=== PATIENT | male | born 1940 | race Caucasian/White ===

== ENCOUNTER 2022-09-05 13:06 | Inpatient (IN) | payer MEDICARE, SELFPAY ==
[2022-09-05] VITALS (23 sets, daily range): BP systolic 109–150; BP diastolic 50–93; PULSE 57–104; RESP 13–22; TEMP 36.6–36.7; O2SAT 96–99; BMI 26.9
--- NOTE | ~2022-09-05 | US_ITS ---
EXAMINATION: US venous doppler [facility] DATE: 09/06/2022 08:55 INDICATION: Lower limb edema. TECHNIQUE: Grayscale ultrasound images without and with compression and Doppler ultrasound images of the bilateral lower extremity veins were obtained. COMPARISON: None. FINDINGS: The visualized portions of right common femoral vein, profunda (deep) femoral vein, femoral vein, pop liteal vein, peroneal veins, posterior tibial veins, and greater saphenous vein outflow are patent. The visualized portions of left common femoral vein, profunda femoral vein, femoral vein, popliteal v ein, peroneal veins, posterior tibial veins, and greater saphenous vein outflow are patent. IMPRESSION: 1. No deep venous thrombosis. Reviewed, dictated and finalized at location A.
--- NOTE | ~2022-09-05 | US_ITS ---
EXAMINATION: US arterial ankle brachial ind DATE: 09/06/2022 12:04 INDICATION: Leg wounds/ulcerations. Left lower limb weakness, pain, numbness and tingling. TECHNIQUE: Segmental pressures and plethysmographic and Doppler waveforms of the brachial and lower e xtremity arteries were obtained. COMPARISON: None. FINDINGS: Right and left brachial artery pressures of 111 mm Hg and 127 mm Hg, respectively, are concordant (no rmal difference <= 30 mmHg). The right ankle-brachial index (MERE) is 1.09 (normal >= 0.9-1.0). The right great toe-brachial index (TBI) is 0.51 (normal >= 0.65). Arterial Doppler waveforms are biphasic with brisk systolic upstrokes at both right posterior tibial and dorsalis pedis arteries. The left MERE is 0.86. The left TBI is 0.39. Arterial Doppler waveforms are biphasic with brisk systol ic upstroke at the left dorsalis pedis artery and with mildly broadened systolic peak with borderline delayed upstrokes at the left posterior tibial artery. IMPRESSION: 1. Arterial occlusive disease to the bilateral lower limbs, left greater than right with mildly decre ased left MERE and moderately decreased left TBI and with mildly decreased right TBI and normal right MERE. Reviewed, dictated and finalized at location B. IMPRESSION: 1. Arterial occlusive disease to the bilateral lower limbs, left greater than r ight with mildly decreased left MERE and moderately decreased left TBI and with mildly decreased right TBI and normal right MERE.
--- NOTE | ~2022-09-05 | XR_ITS ---
EXAMINATION: XR ankle LT min 3V DATE: 09/05/2022 14:30 INDICATION: Left ankle pain, infected wound TECHNIQUE: Anteroposterior, lateral, mortise, and additional oblique view of the ankle were obtained. COMPARISON: None. FINDINGS: There is a soft tissue defect in association with soft tissue swelling medial and posterior to the distal tibia. No associated underlying osseous abnormality is identified. Fragmentation of th e medial malleolus suggests prior injury. Bone alignment is normal. No acute fracture is identified. A plantar calcaneal enthesophyte is noted. 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 IMPRESSION: 1. Soft tissue defect and swelling of the distal leg without underlying osseous abnormality, consiste nt with infection. Reviewed, dictated and finalized at location F. IMPRESSION: 1. Soft tissue defect and swelling of the distal leg without underlying osseous abnormality, consistent with infection.
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
--- NOTE | 2022-09-05 14:12 | ECG_ITS ---
Measurements Intervals [place] Rate: 62 P: 57 AK: 302 QRS: -17 QRSD: 106 T: 59 QT: 433 QTc: 441 Interpretive Statements SINUS RHYTHM WITH FIRST DEGREE AV BLOCK ANTEROSEPTAL MYOCARDIAL INFARCTION , OF INDETERMINATE AGE [40+ ms Q WAVE IN V1-V4] NO PREVIOUS ECG AVAILABLE FOR COMPARISON Electronically Signed On 09-05-2022 15:54:28 CDT by Ashwini Akers M.D.
[2022-09-05 14:43] LABS: Immature Reticulocyte Fraction 14.4 % (3.0-15.9); Reticulocyte Hemoglobin Conten 29.2 pg (28.2-35.7); Reticulocyte Percent 1.58 % (0.7-4.3); Reticulocytes Absolute 0.07 B/L (32.2-175.7)
[2022-09-05 14:51] LABS: Basophils Absolute Auto 0.1 K/mm3 (0.0-0.1); Basophils Percent Auto 0.6 % (0.2-1.2); Eosinophils Absolute Auto 0.2 K/mm3 (0-0.3); Eosinophils Percent Auto 2.3 % (0-4.4); Hematocrit 40.2 % (42.0-52.0); Hemoglobin 13.1 g/dL (14.0-18.0); Immature Granulocyte Absolute 0.11 K/mm3 (0.00-0.031); Immature Granulocyte Percent A 1.3 % (0-0.5); Lymphocytes Absolute Auto 0.95 K/mm3 (0.9-3.2); Lymphocytes Percent Auto 11.3 % (18.3-44.2); Mean Corpuscular HGB Conc 32.6 g/dl (32-36); Mean Corpuscular Hemoglobin 31.3 pg (26-34); Mean Corpuscular Volume 96.2 fl (80-100); Mean Platelet Volume 9.6 fl (7.4-10.4); Monocytes Absolute Auto 0.6 K/mm3 (0.1-0.6); Monocytes Percent Auto 7.5 % (2.6-8.5); Neutrophils Absolute Auto 6.5 K/mm3 (1.3-6.7); Platelet Count Result 342 k/mm3 (150-375); Red Blood Count 4.18 M/mm3 (4.6-6.20); Red Cell Distribution Width 12.6 % (11.5-14.5); White Blood Count 8.4 K/mm3 (4.5-10.0)
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
[2022-09-05 14:58] LABS: INR 1.4; Prothrombin Time 16.8 Seconds (11.1-14.7)
[2022-09-05 14:59] LABS: Lactic Acid Reflex 1.3 mmol/L (0.7-2.0); Partial Thromboplastin Time 50.5 SECONDS (22.3-36.8)
[2022-09-05 15:05] LABS: Alanine Aminotransferase 39 U/L (6-50); Albumin Level 3.6 g/dL (3.5-5.1); Alkaline Phosphatase 61 U/L (38-126); Anion Gap 14 mmol/L (8-16); Aspartate Amino Transferase 43 U/L (17-59); Bilirubin,Total 0.8 mg/dL (0.2-1.3); Blood Urea Nitrogen 35 mg/dL (9-20); CRP 6.7 mg/dL (<1.0); Calcium 8.8 mg/dL (8.4-10.2); Carbon Dioxide 24 mmol/L (22-30); Chloride 104 mmol/L (98-107); Estimated CRCL calculation 39 ml/min; Estimated Glomerular Filt Rate 48; Glucose 105 mg/dL (65-110); Magnesium 2.2 mg/dL (1.6-2.3); Potassium 3.9 mmol/L (3.4-5.0); Sodium 142 mmol/L (137-145)
[2022-09-05 16:09] LABS: Add Urine Microscopic? NO; Appearance Urine Clear (Clear); Bilirubin Urine Negative (Negative); Blood Urine Negative (Negative); Color Urine Yellow (Yellow); Glucose Urine UA Negative (Negative); Ketones Urine Negative (Negative); Leukocyte Esterase Ur Negative LEU/UL (Negative); Nitrate Urine Negative (Negative); Protein Urine Negative (Negative); Specific Grav Ur 1.019 (1.001-1.035); Urobilinogen Urine Negative mg/dL (<2.0)
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
--- NOTE | 2022-09-05 17:51 | PC.NURSE ---
This patient, Miguel Angel Reyes, was admitted to Medical Room 349-01. Patient/family oriented to hospital policies and general routines including ID bracelet, bed and alarms, visiting hours, pain management, procedures, bathroom and other care routines, personal items, smoking policy, room service/diet, and visiting hours. Information on how to activate the Rapid Response Team has been discussed. Patient/Family are encouraged to report perceived risks to care and to ask questions if they do not understand what they are told or what they should do.
[2022-09-05] MEDS: GENTAMICIN SULFATE 0.1% OINT 15 GM TUBE 1 APPLIC TOPICAL (18:00)
[2022-09-05 23:59] LABS: Glucose Point of Care 102 mg/dl (65-105)
[2022-09-06] VITALS (13 sets, daily range): BP systolic 112–140; BP diastolic 56–72; PULSE 56–76; RESP 16–22; TEMP 35.7–36.7; O2SAT 92–99; BMI 26.9
--- NOTE | 2022-09-06 04:25 | PCRCNOTE ---
patient stated that he had a sleep study, but he does not have a home unit; patient did not want to use hospital unit at this time; RT explained the benefits of use to no avail
[2022-09-06 05:38] LABS: Basophils Absolute Auto 0.1 K/mm3 (0.0-0.1); Basophils Percent Auto 0.8 % (0.2-1.2); Eosinophils Absolute Auto 0.2 K/mm3 (0-0.3); Eosinophils Percent Auto 2.8 % (0-4.4); Hematocrit 37.8 % (42.0-52.0); Hemoglobin 12.6 g/dL (14.0-18.0); Immature Granulocyte Absolute 0.09 K/mm3 (0.00-0.031); Immature Granulocyte Percent A 1.2 % (0-0.5); Lymphocytes Absolute Auto 0.92 K/mm3 (0.9-3.2); Lymphocytes Percent Auto 12.2 % (18.3-44.2); Mean Corpuscular HGB Conc 33.3 g/dl (32-36); Mean Corpuscular Hemoglobin 31.3 pg (26-34); Mean Corpuscular Volume 93.8 fl (80-100); Mean Platelet Volume 9.3 fl (7.4-10.4); Monocytes Absolute Auto 0.7 K/mm3 (0.1-0.6); Monocytes Percent Auto 9.6 % (2.6-8.5); Neutrophils Absolute Auto 5.5 K/mm3 (1.3-6.7); Neutrophils Percent Auto 73.4 % (45.5-73.1); Platelet Count Result 313 k/mm3 (150-375); Red Blood Count 4.03 M/mm3 (4.6-6.20); Red Cell Distribution Width 12.4 % (11.5-14.5); White Blood Count 7.5 K/mm3 (4.5-10.0)
[2022-09-06 05:48] LABS: Alanine Aminotransferase 32 U/L (6-50); Albumin Level 3.3 g/dL (3.5-5.1); Alkaline Phosphatase 60 U/L (38-126); Anion Gap 9 mmol/L (8-16); Aspartate Amino Transferase 36 U/L (17-59); Bilirubin,Total 0.7 mg/dL (0.2-1.3); Blood Urea Nitrogen 27 mg/dL (9-20); Calcium 8.8 mg/dL (8.4-10.2); Carbon Dioxide 29 mmol/L (22-30); Chloride 104 mmol/L (98-107); Estimated CRCL calculation 36 ml/min; Estimated Glomerular Filt Rate 45; Glucose 111 mg/dL (65-110); Sodium 142 mmol/L (137-145)
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
[2022-09-06] MEDS: MULTIVITAMINS /C LUTEIN (CENTRUM SILVER) TABLET *BKC 1 TAB PO (09:56)
[2022-09-06] MEDS: GABAPENTIN 100 MG CAPSULE PO ×3 (09:56→17:09)
[2022-09-06] MEDS: FOLIC ACID 1 MG TABLET PO (09:56)
[2022-09-06] MEDS: amLODIPine BESYLATE 5 MG TABLET PO ×2 (09:56→21:48)
[2022-09-06] MEDS: SUCRALFATE 1 GM TABLET PO ×2 (09:56→17:09)
[2022-09-06] MEDS: ATORVASTATIN 20 MG TABLET PO (09:56)
[2022-09-06] MEDS: APIXABAN 5 MG TABLET PO ×2 (09:56→21:48)
[2022-09-06] MEDS: PANTOPRAZOLE 40 MG TABLET PO (09:56)
[2022-09-06] MEDS: METOPROLOL SUCCINATE EXT REL 50 MG TABCR PO (09:57)
[2022-09-06] MEDS: THIAMINE HCL 100 MG TABLET PO (09:57)
[2022-09-06] MEDS: SODIUM CHLORIDE 0.9% IV 1,000 ML 75 ML IV CONT (10:03)
[2022-09-06] MEDS: GENTAMICIN SULFATE 0.1% OINT 15 GM TUBE 1 APPLIC TOPICAL ×2 (10:03→21:49)
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
[2022-09-06 11:39] LABS: Hemoglobin A1C 5.7 % (<5.7)
[2022-09-06] MEDS: cefTRIAXone 2 GM in SODIUM CHLORIDE 0.9% IV 100 ML 200 ML IVPB (12:53)
[2022-09-06 13:39] LABS: Glucose Point of Care 122 mg/dl (65-105)
[2022-09-06] MEDS: IPRATROPIUM BR 0.02% INH SOLN 0.5 MG/2.5 ML VIAL INHALATION ×2 (14:07→20:08)
[2022-09-06] MEDS: ALBUTEROL SULFATE NEB 2.5 MG/0.5 ML INH INHALATION ×2 (14:07→20:07)
[2022-09-06] MEDS: DOXYCYCLINE 100 MG/NS 100 ML 100 MG/100 ML BAG IVPB ×2 (15:15→21:48)
[2022-09-07] VITALS (19 sets, daily range): BP systolic 107–128; BP diastolic 69–81; PULSE 53–105; RESP 16–22; TEMP 36.4–37.1; O2SAT 91–98
[2022-09-07] MEDS: SODIUM CHLORIDE 0.9% IV 1,000 ML 75 ML IV CONT (04:25)
[2022-09-07 06:39] LABS: Basophils Absolute Auto 0.1 K/mm3 (0.0-0.1); Basophils Percent Auto 0.7 % (0.2-1.2); Eosinophils Absolute Auto 0.2 K/mm3 (0-0.3); Hematocrit 38.8 % (42.0-52.0); Hemoglobin 12.6 g/dL (14.0-18.0); Immature Granulocyte Absolute 0.09 K/mm3 (0.00-0.031); Lymphocytes Absolute Auto 1.02 K/mm3 (0.9-3.2); Lymphocytes Percent Auto 11.6 % (18.3-44.2); Mean Corpuscular HGB Conc 32.5 g/dl (32-36); Mean Corpuscular Hemoglobin 30.5 pg (26-34); Mean Corpuscular Volume 93.9 fl (80-100); Mean Platelet Volume 9.6 fl (7.4-10.4); Monocytes Absolute Auto 0.8 K/mm3 (0.1-0.6); Monocytes Percent Auto 8.5 % (2.6-8.5); Neutrophils Absolute Auto 6.7 K/mm3 (1.3-6.7); Neutrophils Percent Auto 76.2 % (45.5-73.1); Platelet Count Result 369 k/mm3 (150-375); Red Blood Count 4.13 M/mm3 (4.6-6.20); Red Cell Distribution Width 12.5 % (11.5-14.5); White Blood Count 8.8 K/mm3 (4.5-10.0)
[2022-09-07] MEDS: IPRATROPIUM BR 0.02% INH SOLN 0.5 MG/2.5 ML VIAL INHALATION ×3 (07:45→20:44)
[2022-09-07] MEDS: ALBUTEROL SULFATE NEB 2.5 MG/0.5 ML INH INHALATION ×3 (07:45→20:44)
--- NOTE | 2022-09-07 08:29 | PM.IMPN ---
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 Adjust per wound culture results. mere - Left reduced 0.86 venous doppler negative ad patient is on eliquis wound RN consulted and continue wound care per recommendations. Continue gentamicin topical ointment. A1c 5.7% (2) Cellulitis: Qualifiers: Site of cellulitis: extremity Site of cellulitis of extremity: lower extremity Laterality: left Qualified Code(s): L03.116 - Cellulitis of left lower limb Code(s): L03.90 - Cellulitis, unspecified Status: Acute Assessment and Plan: as above (3) Macular degeneration: Qualifiers: Macular degeneration type: unspecified type Eye laterality: bilateral Qualified Code(s): H35.30 - Unspecified macular degeneration Code(s): H35.30 - Unspecified macular degeneration Status: Chronic Assessment and Plan: To be aware. (4) COPD (chronic obstructive pulmonary disease): Code(s): J44.9 - Chronic obstructive pulmonary disease, unspecified Status: Acute Assessment and Plan: Chronic, not in acute exacerbation. Continue Duonebs q6 hold systemic steroids (5) PARISA on CPAP: Code(s): G47.33 - Obstructive sleep apnea (adult) (pediatric); Z99.89 - Dependence on other enabling machines and devices Status: Chronic Assessment and Plan: cpap at nighttime and with daytime naps at home settings. (6) Chronic a-fib: Code(s): I48.20 - Chronic atrial fibrillation, unspecified Status: Acute Assessment and Plan: monitor telemetry. Noted to be in sinus rhythm/sinus tachycardia continue metoprolol and eliquis (7) Hyperlipemia, fat-induced: Code(s): E78.49 - Other hyperlipidemia Status: Acute Assessment and Plan: continue lipitor (8) Hypertension: Qualifiers: Hypertension type: primary hypertension Qualified Code(s): I10 - Essential (primary) hypertension Code(s): I10 - Essential (primary) hypertension Status: Chronic Assessment and Plan: chronic, stable. Continue home medications. (9) GERD (gastroesophageal reflux disease): Qualifiers: Esophagitis presence: without esophagitis Qualified Code(s): K21.9 - Gastro-esophageal reflux disease without esophagitis Code(s): K21.9 - Gastro-esophageal reflux disease without esophagitis Status: Chronic Assessment and Plan: Chronic, stable. PPI and sulcralfate (10) Altered mental status: Qualifiers: Altered mental status type: disorientation Qualified Code(s): R41.0 - Disorientation, unspecified Code(s): R41.82 - Altered mental status, unspecified Status: Acute Assessment and Plan: Likely alcohol withdrawal and hospital induced delirium. Continue thiamine and folic acid. TSH within normal limits, A1c 5.7% and B12 658 and stable. (11) Peripheral artery disease: Code(s): I73.9 - Peripheral vascular disease, unspecified Status: Acute Assessment and Plan: Noted to have reduced left MERE 0.86 and TBI left 0.36; right MERE 1.09, TBI 0.51. Check lipid panel. Continue statin. Patient is on Eliquis for afib Counseled on diet, physical activity, avoiding alcohol, not taking up smoking, as well as blood pressure management. (12) CKD (chronic kidney disease): Qualifiers: Chronic kidney disease stage 3 subtype: stage 3a (GFR 45-59) Chronic kidney disease stage: stage 3 (moderate) Qualified Code(s): N18.31 - Chronic kidney disease, stage 3a
[2022-09-07] MEDS: METOPROLOL SUCCINATE EXT REL 50 MG TABCR PO (09:18)
[2022-09-07] MEDS: PANTOPRAZOLE 40 MG TABLET PO (09:18)
[2022-09-07] MEDS: ATORVASTATIN 20 MG TABLET PO (09:18)
[2022-09-07] MEDS: cefTRIAXone 2 GM in SODIUM CHLORIDE 0.9% IV 100 ML 200 ML IVPB (09:18)
[2022-09-07] MEDS: FOLIC ACID 1 MG TABLET PO (09:18)
[2022-09-07] MEDS: amLODIPine BESYLATE 5 MG TABLET PO ×2 (09:18→22:04)
[2022-09-07] MEDS: MULTIVITAMINS /C LUTEIN (CENTRUM SILVER) TABLET *BKC 1 TAB PO (09:18)
[2022-09-07] MEDS: APIXABAN 5 MG TABLET PO ×2 (09:18→22:03)
[2022-09-07] MEDS: GABAPENTIN 100 MG CAPSULE PO ×3 (09:18→17:26)
[2022-09-07] MEDS: SUCRALFATE 1 GM TABLET PO ×2 (09:19→17:26)
[2022-09-07] MEDS: THIAMINE HCL 100 MG TABLET PO (09:19)
[2022-09-07 09:42] LABS: Anion Gap 10 mmol/L (8-16); Blood Urea Nitrogen 23 mg/dL (9-20); Calcium 8.3 mg/dL (8.4-10.2); Carbon Dioxide 24 mmol/L (22-30); Chloride 106 mmol/L (98-107); Estimated CRCL calculation 39 ml/min; Estimated Glomerular Filt Rate 48; Glucose 98 mg/dL (65-110); Potassium 3.9 mmol/L (3.4-5.0); Sodium 140 mmol/L (137-145)
[2022-09-07] MEDS: DOXYCYCLINE 100 MG/NS 100 ML 100 MG/100 ML BAG IVPB ×2 (10:09→22:03)
[2022-09-07 11:04] LABS: Folic Acid > 20.0 ng/mL (2.76->20)
[2022-09-07] MEDS: GENTAMICIN SULFATE 0.1% OINT 15 GM TUBE 1 APPLIC TOPICAL ×2 (12:31→22:03)
[2022-09-07 13:00] LABS: Cholesterol 120 mg/dL (0-200); HDL Direct 23 mg/dL; Triglycerides 177 mg/dL (<150)
[2022-09-07 13:11] LABS: LDL Cholesterol Direct 69 mg/dL
[2022-09-07] MEDS: MELATONIN 5 MG TABLET PO (22:03)
[2022-09-08] VITALS (19 sets, daily range): BP systolic 113–126; BP diastolic 57–77; PULSE 58–104; RESP 16–20; TEMP 35.7–36.9; O2SAT 93–97
[2022-09-08] MEDS: ALBUTEROL SULFATE NEB 2.5 MG/0.5 ML INH INHALATION ×4 (02:26→20:18)
[2022-09-08] MEDS: IPRATROPIUM BR 0.02% INH SOLN 0.5 MG/2.5 ML VIAL INHALATION ×4 (02:26→20:18)
[2022-09-08] MEDS: SODIUM CHLORIDE 0.9% IV 1,000 ML 75 ML IV CONT (03:30)
--- NOTE | 2022-09-08 07:56 | PM.IMPN ---
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 09/06/22-09/08/22 mere - Left reduced 0.86 venous doppler negative ad patient is on eliquis wound RN consulted and continue wound care per recommendations. A1c 5.7% 09/08/22 wound culture negative for growth. 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 Transition to oral doxycycline 100 mg BID and oral cefdinir 300 mg BID x5-7 days. Stop gentamicin ointment. Will have wound nurse assess in am if silver gel appropriate for application. (2) Cellulitis: Qualifiers: Laterality: left Site of cellulitis: extremity Site of cellulitis of extremity: lower extremity Qualified Code(s): L03.116 - Cellulitis of left lower limb Code(s): L03.90 - Cellulitis, unspecified Status: Acute Assessment and Plan: as above (3) Macular degeneration: Qualifiers: Eye laterality: bilateral Macular degeneration type: unspecified type Qualified Code(s): H35.30 - Unspecified macular degeneration Code(s): H35.30 - Unspecified macular degeneration Status: Chronic Assessment and Plan: To be aware. (4) COPD (chronic obstructive pulmonary disease): Code(s): J44.9 - Chronic obstructive pulmonary disease, unspecified Status: Acute Assessment and Plan: Chronic, not in acute exacerbation. Continue Duonebs q6 hold systemic steroids Stable (5) PARISA on CPAP: Code(s): G47.33 - Obstructive sleep apnea (adult) (pediatric); Z99.89 - Dependence on other enabling machines and devices Status: Chronic Assessment and Plan: cpap at nighttime and with daytime naps at home settings. (6) Chronic a-fib: Code(s): I48.20 - Chronic atrial fibrillation, unspecified Status: Acute Assessment and Plan: monitor telemetry. Noted to be in sinus rhythm/sinus tachycardia continue metoprolol and eliquis (7) Hyperlipemia, fat-induced: Code(s): E78.49 - Other hyperlipidemia Status: Acute Assessment and Plan: chronic, stable. continue lipitor (8) Hypertension: Qualifiers: Hypertension type: primary hypertension Qualified Code(s): I10 - Essential (primary) hypertension Code(s): I10 - Essential (primary) hypertension Status: Chronic Assessment and Plan: chronic, stable. Continue home medications. (9) GERD (gastroesophageal reflux disease): Qualifiers: Esophagitis presence: without esophagitis Qualified Code(s): K21.9 - Gastro-esophageal reflux disease without esophagitis Code(s): K21.9 - Gastro-esophageal reflux disease without esophagitis Status: Chronic Assessment and Plan: Chronic, stable. PPI and sulcralfate (10) Altered mental status: Qualifiers: Altered mental status type: disorientation Qualified Code(s): R41.0 - Disorientation, unspecified Code(s): R41.82 - Altered mental status, unspecified Status: Acute Assessment and Plan: Likely alcohol withdrawal and hospital induced delirium. Continue thiamine and folic acid. TSH within normal limits, A1c 5.7% and B12 658 and stable. (11) Peripheral artery disease: Code(s): I73.9 - Peripheral vascular disease, unspecified Status: Acute Assessment and Plan: Noted to have reduced left MERE 0.86 and TBI left 0.36; right MERE 1.09, TBI 0.51. lipid panel. Continue statin. Patient is on Eliquis for afib Counseled on diet, physical activity, avoiding alcohol, not taking up smoking, as well as blood pressure m
[2022-09-08] MEDS: amLODIPine BESYLATE 5 MG TABLET PO ×2 (09:27→20:44)
[2022-09-08] MEDS: ATORVASTATIN 20 MG TABLET PO (09:27)
[2022-09-08] MEDS: APIXABAN 5 MG TABLET PO ×2 (09:27→20:44)
[2022-09-08] MEDS: PANTOPRAZOLE 40 MG TABLET PO (09:28)
[2022-09-08] MEDS: FOLIC ACID 1 MG TABLET PO (09:28)
[2022-09-08] MEDS: METOPROLOL SUCCINATE EXT REL 50 MG TABCR PO (09:28)
[2022-09-08] MEDS: GABAPENTIN 100 MG CAPSULE PO ×3 (09:28→18:44)
[2022-09-08] MEDS: THIAMINE HCL 100 MG TABLET PO (09:29)
[2022-09-08] MEDS: SUCRALFATE 1 GM TABLET PO ×2 (09:29→15:13)
[2022-09-08] MEDS: GENTAMICIN SULFATE 0.1% OINT 15 GM TUBE 1 APPLIC TOPICAL (09:30)
[2022-09-08] MEDS: DOXYCYCLINE HYCLATE 100 MG TABLET PO ×2 (09:33→20:44)
[2022-09-08] MEDS: CEFDINIR 300 MG CAPSULE PO ×2 (09:33→20:44)
[2022-09-08 10:57] LABS: Basophils Absolute Auto 0.1 K/mm3 (0.0-0.1); Basophils Percent Auto 0.6 % (0.2-1.2); Eosinophils Absolute Auto 0.1 K/mm3 (0-0.3); Eosinophils Percent Auto 1.6 % (0-4.4); Hematocrit 39.1 % (42.0-52.0); Hemoglobin 12.5 g/dL (14.0-18.0); Immature Granulocyte Absolute 0.06 K/mm3 (0.00-0.031); Immature Granulocyte Percent A 0.8 % (0-0.5); Lymphocytes Absolute Auto 0.75 K/mm3 (0.9-3.2); Lymphocytes Percent Auto 9.5 % (18.3-44.2); Mean Corpuscular Hemoglobin 31.4 pg (26-34); Mean Corpuscular Volume 98.2 fl (80-100); Mean Platelet Volume 9.4 fl (7.4-10.4); Monocytes Absolute Auto 0.4 K/mm3 (0.1-0.6); Monocytes Percent Auto 5.6 % (2.6-8.5); Neutrophils Absolute Auto 6.5 K/mm3 (1.3-6.7); Neutrophils Percent Auto 81.9 % (45.5-73.1); Platelet Count Result 335 k/mm3 (150-375); Red Blood Count 3.98 M/mm3 (4.6-6.20); Red Cell Distribution Width 12.7 % (11.5-14.5); White Blood Count 7.9 K/mm3 (4.5-10.0)
[2022-09-08 11:13] LABS: Anion Gap 8 mmol/L (8-16); Blood Urea Nitrogen 22 mg/dL (9-20); Calcium 8.3 mg/dL (8.4-10.2); Carbon Dioxide 23 mmol/L (22-30); Chloride 108 mmol/L (98-107); Estimated CRCL calculation 42 ml/min; Estimated Glomerular Filt Rate 53; Glucose 188 mg/dL (65-110); Potassium 3.9 mmol/L (3.4-5.0); Sodium 139 mmol/L (137-145)
[2022-09-08] MEDS: MULTIVITAMINS /C LUTEIN (CENTRUM SILVER) TABLET *BKC 1 TAB PO (12:24)
[2022-09-08] MEDS: SACCHAROMYCES BOULARDII 250 MG CAPSULE PO (18:44)
[2022-09-08] MEDS: MELATONIN 5 MG TABLET PO (20:44)
[2022-09-08] MEDS: SENNA/DOCUSATE SODIUM TABLET 1 TAB PO (20:44)
[2022-09-09] VITALS (10 sets, daily range): BP systolic 100–126; BP diastolic 62–67; PULSE 75–125; RESP 18–20; TEMP 36.4–37.1; O2SAT 94–95
[2022-09-09 05:44] LABS: Basophils Absolute Auto 0.1 K/mm3 (0.0-0.1); Basophils Percent Auto 0.7 % (0.2-1.2); Eosinophils Absolute Auto 0.2 K/mm3 (0-0.3); Eosinophils Percent Auto 2.5 % (0-4.4); Hematocrit 38.5 % (42.0-52.0); Hemoglobin 12.2 g/dL (14.0-18.0); Immature Granulocyte Absolute 0.05 K/mm3 (0.00-0.031); Immature Granulocyte Percent A 0.6 % (0-0.5); Lymphocytes Absolute Auto 0.99 K/mm3 (0.9-3.2); Mean Corpuscular HGB Conc 31.7 g/dl (32-36); Mean Corpuscular Volume 97.7 fl (80-100); Mean Platelet Volume 9.1 fl (7.4-10.4); Monocytes Absolute Auto 0.7 K/mm3 (0.1-0.6); Monocytes Percent Auto 8.8 % (2.6-8.5); Neutrophils Absolute Auto 6.2 K/mm3 (1.3-6.7); Neutrophils Percent Auto 75.4 % (45.5-73.1); Platelet Count Result 306 k/mm3 (150-375); Red Blood Count 3.94 M/mm3 (4.6-6.20); Red Cell Distribution Width 12.6 % (11.5-14.5); White Blood Count 8.3 K/mm3 (4.5-10.0)
[2022-09-09 05:58] LABS: Anion Gap 10 mmol/L (8-16); Blood Urea Nitrogen 21 mg/dL (9-20); Calcium 8.6 mg/dL (8.4-10.2); Carbon Dioxide 26 mmol/L (22-30); Chloride 105 mmol/L (98-107); Estimated CRCL calculation 42 ml/min; Estimated Glomerular Filt Rate 53; Glucose 107 mg/dL (65-110); Potassium 3.9 mmol/L (3.4-5.0); Sodium 141 mmol/L (137-145)
[2022-09-09 07:30] LABS: Procalcitonin 0.1 ng/mL
[2022-09-09] MEDS: ALBUTEROL SULFATE NEB 2.5 MG/0.5 ML INH INHALATION ×2 (07:54→14:07)
[2022-09-09] MEDS: IPRATROPIUM BR 0.02% INH SOLN 0.5 MG/2.5 ML VIAL INHALATION ×2 (07:54→14:07)
[2022-09-09] MEDS: METOPROLOL SUCCINATE EXT REL 50 MG TABCR PO (08:54)
[2022-09-09] MEDS: THIAMINE HCL 100 MG TABLET PO (08:54)
[2022-09-09] MEDS: APIXABAN 5 MG TABLET PO (08:54)
[2022-09-09] MEDS: DOXYCYCLINE HYCLATE 100 MG TABLET PO (08:54)
[2022-09-09] MEDS: POTASSIUM CHLORIDE 20 MEQ TABLET 40 MEQ PO (08:54)
[2022-09-09] MEDS: FOLIC ACID 1 MG TABLET PO (08:55)
[2022-09-09] MEDS: amLODIPine BESYLATE 5 MG TABLET PO (08:55)
[2022-09-09] MEDS: CEFDINIR 300 MG CAPSULE PO (08:55)
[2022-09-09] MEDS: SACCHAROMYCES BOULARDII 250 MG CAPSULE PO (08:55)
[2022-09-09] MEDS: ATORVASTATIN 20 MG TABLET PO (08:55)
[2022-09-09] MEDS: PANTOPRAZOLE 40 MG TABLET PO (08:55)
[2022-09-09] MEDS: GABAPENTIN 100 MG CAPSULE PO ×2 (08:55→12:26)
--- NOTE | 2022-09-09 12:13 | PM.IMPN ---
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 09/06/22-09/08/22 mere - Left reduced 0.86 venous doppler negative ad patient is on eliquis wound RN consulted and continue wound care per recommendations. A1c 5.7% 09/08/22 wound culture negative for growth. 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 Transition to oral doxycycline 100 mg BID and oral cefdinir 300 mg BID x5-7 days. Stop gentamicin ointment. Will have wound nurse assess in am if silver gel appropriate for application. (2) Cellulitis: Qualifiers: Site of cellulitis: extremity Site of cellulitis of extremity: lower extremity Laterality: left Qualified Code(s): L03.116 - Cellulitis of left lower limb Code(s): L03.90 - Cellulitis, unspecified Status: Acute Assessment and Plan: as above (3) Macular degeneration: Qualifiers: Macular degeneration type: unspecified type Eye laterality: bilateral Qualified Code(s): H35.30 - Unspecified macular degeneration Code(s): H35.30 - Unspecified macular degeneration Status: Chronic Assessment and Plan: To be aware. (4) COPD (chronic obstructive pulmonary disease): Code(s): J44.9 - Chronic obstructive pulmonary disease, unspecified Status: Acute Assessment and Plan: Chronic, not in acute exacerbation. Continue Duonebs q6 hold systemic steroids Stable (5) PARISA on CPAP: Code(s): G47.33 - Obstructive sleep apnea (adult) (pediatric); Z99.89 - Dependence on other enabling machines and devices Status: Chronic Assessment and Plan: cpap at nighttime and with daytime naps at home settings. (6) Chronic a-fib: Code(s): I48.20 - Chronic atrial fibrillation, unspecified Status: Acute Assessment and Plan: monitor telemetry. Noted to be in sinus rhythm/sinus tachycardia continue metoprolol and eliquis (7) Hyperlipemia, fat-induced: Code(s): E78.49 - Other hyperlipidemia Status: Acute Assessment and Plan: chronic, stable. continue lipitor (8) Hypertension: Qualifiers: Hypertension type: primary hypertension Qualified Code(s): I10 - Essential (primary) hypertension Code(s): I10 - Essential (primary) hypertension Status: Chronic Assessment and Plan: chronic, stable. Continue home medications. (9) GERD (gastroesophageal reflux disease): Qualifiers: Esophagitis presence: without esophagitis Qualified Code(s): K21.9 - Gastro-esophageal reflux disease without esophagitis Code(s): K21.9 - Gastro-esophageal reflux disease without esophagitis Status: Chronic Assessment and Plan: Chronic, stable. PPI and sulcralfate (10) Altered mental status: Qualifiers: Altered mental status type: disorientation Qualified Code(s): R41.0 - Disorientation, unspecified Code(s): R41.82 - Altered mental status, unspecified Status: Acute Assessment and Plan: Likely alcohol withdrawal and hospital induced delirium. Continue thiamine and folic acid. TSH within normal limits, A1c 5.7% and B12 658 and stable. (11) Peripheral artery disease: Code(s): I73.9 - Peripheral vascular disease, unspecified Status: Acute Assessment and Plan: Noted to have reduced left MERE 0.86 and TBI left 0.36; right MERE 1.09, TBI 0.51. lipid panel. Continue statin. Patient is on Eliquis for afib Counseled on diet, physical activity, avoiding alcohol, not taking up smoking, as well as blood pressure m
[2022-09-09] MEDS: MULTIVITAMINS /C LUTEIN (CENTRUM SILVER) TABLET *BKC 1 TAB PO (12:26)
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
[2022-09-09 15:29] LABS: EDCOVIDSCREEN Negative (Negative)
== END 2022-09-09 15:47 | DRG 603 ==
LOC: ANHED 14:37 → ANH3MED 16:32 → ANH3MEDSUR 09-06 10:30 → ANH3MED 09-06 10:35
PROVIDERS: Admitting Provider Family Medicine; Emergency Provider General Practice; Visit Provider Nurse Practitioner Family
DX: L03.116 Cellulitis of left lower limb (principal); I83.228 Varicose veins of left lower extremity with both ulcer of other part of lower extremity and inflammation; F10.231 Alcohol dependence with withdrawal delirium; I48.20 Chronic atrial fibrillation, unspecified; L97.829 Non-pressure chronic ulcer of other part of left lower leg with unspecified severity; N17.9 Acute kidney failure, unspecified; Z20.822 Contact with and (suspected) exposure to COVID-19; B37.9 Candidiasis, unspecified; B96.82 Vibrio vulnificus as the cause of diseases classified elsewhere; E78.49 Other hyperlipidemia; G47.33 Obstructive sleep apnea (adult) (pediatric); H35.30 Unspecified macular degeneration; I12.9 Hypertensive chronic kidney disease with stage 1 through stage 4 chronic kidney disease, or unspecified chronic kidney disease; I73.9 Peripheral vascular disease, unspecified; J44.9 Chronic obstructive pulmonary disease, unspecified; N18.31 Chronic kidney disease, stage 3a; R53.1 Weakness; Z99.89 Dependence on other enabling machines and devices; Z90.79 Acquired absence of other genital organ(s); Z79.01 Long term (current) use of anticoagulants; Z87.891 Personal history of nicotine dependence
CPT/HCPCS: 36415; 71045; 73610; 80048; 80053; 80061; 81003; 82607; 82746; 82948; 83036; 83605; 83735; 84145; 84443; 85025; 85046; 85610; 85730; 86140; 87040; 87070; 87205; 87426; 93005; 93922; 93970; 94640; 94660; 96361; 96365; 96366; 96367; 97110; 97161; 97165; 97530; 97535; 99285; A9270; C9803; G0378; J0696; J2543; J3370; J7030

== ENCOUNTER 2022-11-22 11:28 | Emergency (ER) | payer MEDICARE, SELFPAY ==
--- NOTE | ~2022-11-22 | XR_ITS ---
Portable chest x-ray Comparison: 09/05/2022 Clinical History: Shortness of breath Findings: Lungs are clear, without focal consolidation or pleural effusion. Stable elevation right h emidiaphragm. Cardiomediastinal silhouette is stable. Bones and soft tissues are unremarkable. Impression: Clear lungs. Reviewed, dictated and finalized at location . [facility] Impression: Clear lungs.
[2022-11-22 11:43] VITALS: BP 131/60; PULSE 77; RESP 18; TEMP 38.1; O2SAT 95
[2022-11-22 12:53] LABS: Basophils Percent Auto 0.3 % (0.2-1.2); Eosinophils Percent Auto 0.2 % (0-4.4); Hemoglobin 11.8 g/dL (14.0-18.0); Immature Granulocyte Absolute 0.02 K/mm3 (0.00-0.031); Immature Granulocyte Percent A 0.3 % (0-0.5); Lymphocytes Absolute Auto 1.64 K/mm3 (0.9-3.2); Lymphocytes Percent Auto 26.6 % (18.3-44.2); Mean Corpuscular HGB Conc 31.1 g/dl (32-36); Mean Corpuscular Hemoglobin 27.5 pg (26-34); Mean Corpuscular Volume 88.6 fl (80-100); Mean Platelet Volume 9.6 fl (7.4-10.4); Monocytes Absolute Auto 0.7 K/mm3 (0.1-0.6); Monocytes Percent Auto 11.5 % (2.6-8.5); Neutrophils Absolute Auto 3.8 K/mm3 (1.3-6.7); Neutrophils Percent Auto 61.1 % (45.5-73.1); Platelet Count Result 206 k/mm3 (150-375); Red Blood Count 4.29 M/mm3 (4.6-6.20); Red Cell Distribution Width 15.7 % (11.5-14.5); White Blood Count 6.2 K/mm3 (4.5-10.0)
[2022-11-22] MEDS: ACETAMINOPHEN 325 MG TABLET 650 MG PO (12:59)
[2022-11-22] MEDS: SODIUM CHLORIDE 0.9% IV 1,000 ML 999 ML IV CONT (12:59)
[2022-11-22 13:10] VITALS: O2SAT 96
[2022-11-22 13:10] LABS: Alanine Aminotransferase 23 U/L (6-50); Alkaline Phosphatase 75 U/L (38-126); Anion Gap 7 mmol/L (8-16); Aspartate Amino Transferase 32 U/L (17-59); Bilirubin,Total 0.9 mg/dL (0.2-1.3); Blood Urea Nitrogen 19 mg/dL (9-20); Calcium 8.6 mg/dL (8.4-10.2); Carbon Dioxide 31 mmol/L (22-30); Chloride 98 mmol/L (98-107); Estimated CRCL calculation 39 ml/min; Estimated Glomerular Filt Rate 48; Glucose 105 mg/dL (65-110); Potassium 3.9 mmol/L (3.4-5.0); Sodium 136 mmol/L (137-145)
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
== END 2022-11-22 14:50 ==
PROVIDERS: Emergency Provider Emergency Medicine
DX: U07.1 COVID-19 (principal); I48.20 Chronic atrial fibrillation, unspecified; J44.9 Chronic obstructive pulmonary disease, unspecified; E78.5 Hyperlipidemia, unspecified; I10 Essential (primary) hypertension; H35.30 Unspecified macular degeneration; G47.33 Obstructive sleep apnea (adult) (pediatric); Z90.79 Acquired absence of other genital organ(s); Z87.891 Personal history of nicotine dependence; Z79.01 Long term (current) use of anticoagulants
CPT/HCPCS: 36415; 71045; 80053; 85025; 96360; 99283; A9270; J7030

== ENCOUNTER 2023-04-06 12:25 | Emergency (ER) | payer MEDICARE, SELFPAY ==
[2023-04-06 12:44] VITALS: BP 159/83; PULSE 79; RESP 20; TEMP 36.6; O2SAT 96
--- NOTE | 2023-04-06 14:01 | ED.GENADULT ---
HPI - General Adult General Chief complaint: Skin/Abscess/Foreign Body Stated complaint: Rash on face/head Source: patient and family Mode of arrival: ambulatory Limitations: no limitations History of Present Illness HPI narrative: Patient presents for evaluation of pruritic rash. He indicates he was living in [place] last fall and developed some cellulitis in [place]. He was treated with abx. He states he developed a rash to his LLE at that time which has since migrated to other parts of his body. His daughter, present today, indicates that his rash started within the last few days. No new lotions, soaps, detergents, topical products. He is under the care of platform inspector, Dr. Julio, at [facility]. He was experiencing joint pain and was started on prednisone 10mg daily and methotrexate. His joint pain resolved as soon as he stated his medications. He states he was told that he has some type of arthritis. He has a follow-up appointment on 04/15/2023. He is legally blind but typically has intact peripheral vision. Recently he has noted some visual disturbance in his peripheral vision. Related Data Home Medications Medication Instructions Recorded Confirmed amlodipine 5 mg tablet 5 mg PO BID 09/05/22 04/06/23 apixaban 5 mg tablet (Eliquis) 5 mg PO BID 09/05/22 04/06/23 atorvastatin 20 mg tablet 20 mg PO DAILY 09/05/22 04/06/23 multivit with minerals-iron 18 1 tablet PO DAILY 09/05/22 04/06/23 mg-folic ac 400 mcg-vit K 25 mcg tablet (Adults Multivitamin) folic acid 1 mg tablet 1 mg PO DAILY 04/06/23 04/06/23 gabapentin 100 mg capsule 100 mg PO TID 04/06/23 04/06/23 methotrexate sodium 2.5 mg tablet 2.5 mg PO DAILY 04/06/23 04/06/23 metoprolol succinate 50 mg 50 mg PO DAILY 04/06/23 04/06/23 tablet,extended release 24 hr omeprazole 20 mg capsule,delayed 20 mg PO DAILY 04/06/23 04/06/23 release permethrin 5 % topical cream 2 applic topical DAILY 04/06/23 04/06/23 prednisone 10 mg tablet 10 mg PO DAILY 04/06/23 04/06/23 trazodone 50 mg tablet 50 mg PO DAILY 04/06/23 04/06/23 Allergies Allergy/AdvReac Type Severity Reaction Status Date / Time No Known Allergies Allergy Verified 04/06/23 12:55 Review of Systems Review of Systems: CONSTITUTIONAL: Denies fever, chills, or sweats. EYES: Reports chronic visual impairments with new onset peripheral visual impairment. ENT: Denies rhinorrhea, congestion, sore throat, or otalgia. CARDIOVASCULAR: Denies chest pain, palpitations, or edema. RESPIRATORY: Denies cough or dyspnea. GASTROINTESTINAL: Denies abdominal pain, nausea, vomiting, or diarrhea. GENITOURINARY: Denies dysuria or hematuria. SKIN: Reports pruritic rash to torso and extremities x4. MUSCULOSKELETAL: Denies back pain, joint pain, or myalgia. NEUROLOGIC: Denies headache, numbness, dizziness, or weakness. PSYCHIATRIC: Denies anxiety or depression. [facility] Past Medical History Medical History Alcoholism Chronic a-fib COPD (chronic obstructive pulmonary disease) FHx: cancer of prostate radiation and surgery Hyperlipemia, fat-induced Hypertension Macular degeneration PARISA on CPAP Surgical History Surgical History H/O hernia repair H/O prostatectomy History of implantation of penile prosthesis Family History Family History Father Cancer Mother Hypertension Diabetes mellitus Cerebrovascular accident Sibling Myalgia sister Social History Social History Social History: The patient is and has 3 children who he adopted. The patient is retired from education and finances his daughter Floresita is a durable power assistant county attorney for healthcare. The daughter tells me that the patient was a heavy drinker and that he just went through detox at the [facility]
== END 2023-04-06 14:02 | disposition home or self-care (01) ==
PROVIDERS: Emergency Provider Nurse Practitioner; PCP Internal Medicine
DX: L30.9 Dermatitis, unspecified (principal); Z87.891 Personal history of nicotine dependence; I48.20 Chronic atrial fibrillation, unspecified; J44.9 Chronic obstructive pulmonary disease, unspecified; E78.5 Hyperlipidemia, unspecified; I10 Essential (primary) hypertension; H35.30 Unspecified macular degeneration; G47.33 Obstructive sleep apnea (adult) (pediatric); H54.8 Legal blindness, as defined in USA
CPT/HCPCS: 99213; G0463

== ENCOUNTER 2024-05-21 09:49 | Emergency (ER) | payer MEDICARE, SELFPAY ==
--- NOTE | 2024-05-21 09:53 | ED.FALL ---
HPI - Fall General Chief Complaint: Back Pain/Injury Stated Complaint: Fall Injury/Back Injury Time Seen by Provider: 05/21/24 10:04 Source: patient and RN notes reviewed Mode of arrival: ambulatory Limitations: no limitations History of Present Illness HPI Narrative: 83-year-old male presents with concern for muscle pain in his right low back. Reports he was sitting in a gardening bandage yesterday when the guarding bandage collapsed and the arm rest of the bench hit his right low back area. Reports he was about 2 ft from the ground and fell to the ground. He denies any other injury or trauma. Reports no pain at rest, certain movements such as standing up or sitting for a long time causes sharp pain in the area where the arm rest hit his low back. He denies any bruising, redness, open skin. Denies any weakness decreased sensation, range of motion in the lower extremities. Denies loss of bowel or bladder function. Denies abdominal pain. He denies any pain radiating up the back or down the leg. He has not taken any medications for his pain. He uses a walker at baseline. MD complaint: fall Related Data Home Medications Medication Instructions Recorded Confirmed amlodipine 5 mg tablet 5 mg PO BID 09/05/22 05/21/24 apixaban 5 mg tablet (Eliquis) 5 mg PO BID 09/05/22 05/21/24 atorvastatin 20 mg tablet 20 mg PO DAILY 09/05/22 05/21/24 multivit with minerals-iron 18 1 tablet PO DAILY 09/05/22 05/21/24 mg-folic ac 400 mcg-vit K 25 mcg tablet (Adults Multivitamin) folic acid 1 mg tablet 1 mg PO DAILY 04/06/23 05/21/24 methotrexate sodium 2.5 mg tablet 2.5 mg PO DAILY 04/06/23 05/21/24 omeprazole 20 mg capsule,delayed 20 mg PO DAILY 04/06/23 05/21/24 release carvedilol 3.125 mg tablet 3.125 mg PO Q12H 04/20/24 05/21/24 lisinopril 5 mg tablet 5 mg PO DAILY 04/20/24 05/21/24 memantine 5 mg tablet 5 mg PO QAM 04/20/24 05/21/24 vibegron 75 mg tablet (Gemtesa) 75 mg PO DAILY 04/20/24 05/21/24 Allergies Allergy/AdvReac Type Severity Reaction Status Date / Time No Known Allergies Allergy Verified 05/21/24 10:06 Review of Systems Review of Systems: CONSTITUTIONAL: Denies malaise, chills, sweats, or fever. CARDIOVASCULAR: Denies chest pain, palpitations, or edema. RESPIRATORY: Denies cough or dyspnea. GASTROINTESTINAL: Denies abdominal pain, nausea, vomiting, diarrhea, loss of bowel function GENITOURINARY: Denies dysuria, hematuria, frequency, loss of bladder function. SKIN: Denies rash or itching. MUSCULOSKELETAL: Reports right low back pain NEUROLOGIC: Denies numbness, weakness, or headache. All systems reviewed & are unremarkable except as noted in HPI and below PMFSH Past Medical History Medical History Alcoholism Chronic a-fib COPD (chronic obstructive pulmonary disease) FHx: cancer of prostate radiation and surgery Hyperlipemia, fat-induced Hypertension Macular degeneration PARISA on CPAP Surgical History Surgical History H/O hernia repair H/O prostatectomy History of implantation of penile prosthesis Family History Family History Father Cancer Mother Hypertension Diabetes mellitus Cerebrovascular accident Sibling Myalgia sister Social History Social History Social History: The patient is and has 3 children who he adopted. 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 The daughter tells me that the patient was a heavy drinker and that he just went through detox at the [facility] please admitted there for his wounds. The patient is a former smoker. He does not use any marijuana or illicit drugs. Code status full code Smoking packs per day: 1 Smoking cigarettes per day: 20.0 Years sm
[2024-05-21 09:57] VITALS: BP 163/83; PULSE 64; RESP 18; TEMP 36.5; O2SAT 100
== END 2024-05-21 10:21 | disposition home or self-care (01) ==
PROVIDERS: Emergency Provider Nurse Practitioner; PCP Internal Medicine
DX: M54.50 Low back pain, unspecified (principal); Z87.891 Personal history of nicotine dependence; I48.20 Chronic atrial fibrillation, unspecified; J44.9 Chronic obstructive pulmonary disease, unspecified; E78.5 Hyperlipidemia, unspecified; I10 Essential (primary) hypertension; H35.30 Unspecified macular degeneration; G47.33 Obstructive sleep apnea (adult) (pediatric); Z79.01 Long term (current) use of anticoagulants
CPT/HCPCS: 99213; G0463

== ENCOUNTER 2024-05-24 11:06 | Emergency (ER) | payer MEDICARE, SELFPAY ==
[2024-05-24] VITALS (24 sets, daily range): BP systolic 158–173; BP diastolic 72–96; PULSE 52–65; RESP 9–17; TEMP 36.6; O2SAT 94–100
--- NOTE | ~2024-05-24 | CT_ITS ---
CT lumbar spine wo con Ordering provider: Darrian Strickland MD History: 83 years Male with . Fall, Left Lumbar and paralumbar pain . Comparison: None. Technique: CT lumbar spine without contrast. Automated exposure control and iterative reconstruction technique were employed. The dose-length product was 860.01 mGy-cm. FINDINGS: VERTEBRAE: First-degree Spondylolisthesis at the level of L4-L5. Spondylolysis on the right side at t he same level. Otherwise, Normal height and alignment. No subluxation or visible acute fracture. DISC SPACES: Narrowing of all the disc spaces in the lumbar area. Multilevel facet joint disease. Narrowing of the right foramen at the level of T10 and T11. T12-L1: No stenosis. L1-L2: No stenosis. Narrowing of the right intervertebral foramen by osteophytes. L2-L3: No stenosis. L3-L4: Mild spinal canal stenosis secondary to broad based disc bulge, facet arthropathy, and ligamen geoffrey flavum hypertrophy. bilateral narrowing of the foramina and the root compression. Thickening of t he ligamenta flava. L4-L5: Moderate spinal canal stenosis secondary to broad based disc bulge, facet arthropathy, and li gamentum flavum hypertrophy. Bilateral narrowing of the foramina with root compression. L5-S1: No stenosis. Bilateral narrowing of the foramina with root compression. PARASPINOUS SOFT TISSUES: Mild atheromatous disease of the abdominal aorta. Right renal cyst. Soft tissue density in the left kidney which may be a mass. Further evaluation advi sed. Left renal cyst. Soft tissue density seen adjacent to the right kidney. IMPRESSION: Multilevel degenerative disc disease with mild stenoses and neural impingement. No acute osseous abnormality. Possible mass in the left kidney. Follow-up advised. Soft tissue density seen adjacent to the right kidney. Reviewed, dictated and finalized at location A.
--- NOTE | ~2024-05-24 | XR_ITS ---
SINGLE AP VIEW PELVIS Ordering provider: Darrian Strickland MD History: . Fall . Comparison: None. FINDINGS: BONES: No acute fracture or dislocation. HIP JOINT SPACES: Bilateral hip osteoarthritic changes. SACROILIAC JOINT SPACES/LUMBAR SPINE: The sacroiliac joint spaces are normal. Mild degenerative hines es of the visualized lower lumbar spine. PUBIC SYMPHYSIS: Normal. SOFT TISSUES: Normal. IMPRESSION: No acute osseous abnormality pelvis. Reviewed, dictated and finalized at location A.
[2024-05-24] MEDS: ACETAMINOPHEN 325 MG TABLET 650 MG PO (14:20)
[2024-05-24] MEDS: HYDROcodone/acetaminophen (*CRX) 5-325 MG TABLET 1 TAB PO (14:20)
[2024-05-24] MEDS: methocarbamoL 750 MG TABLET PO (14:21)
[2024-05-24] MEDS: LIDOCAINE 5% PATCH 1 PATCH TRANSDERM (14:21)
--- NOTE | 2024-05-24 15:40 | ED.GENADULT ---
HPI - General Adult General Chief complaint: Fall Stated complaint: fall 3 days ago, right hip pain Time Seen by Provider: 05/24/24 14:00 History of Present Illness HPI narrative: this is an 83-year-old male presenting with left lower back pain 3 days after a fall. Patient fell off a chair in his garden and struck his lower back on a rail. pain is described as an achy pain in the left lower back, it is nonradiating and moderate in intensity. He was seen in urgent care and prescribed an NSAID with minimal relief. He is in here today because his pain is worse he is having difficulty moving around. Patient has been ambulatory since the incident. He has no weakness to his lower extremities, urinary retention bowel incontinence fevers. He has a history of prostate cancer Related Data Home Medications Medication Instructions Recorded Confirmed amlodipine 5 mg tablet 5 mg PO BID 09/05/22 05/21/24 apixaban 5 mg tablet (Eliquis) 5 mg PO BID 09/05/22 05/21/24 atorvastatin 20 mg tablet 20 mg PO DAILY 09/05/22 05/21/24 multivit with minerals-iron 18 1 tablet PO DAILY 09/05/22 05/21/24 mg-folic ac 400 mcg-vit K 25 mcg tablet (Adults Multivitamin) folic acid 1 mg tablet 1 mg PO DAILY 04/06/23 05/21/24 methotrexate sodium 2.5 mg tablet 2.5 mg PO DAILY 04/06/23 05/21/24 omeprazole 20 mg capsule,delayed 20 mg PO DAILY 04/06/23 05/21/24 release carvedilol 3.125 mg tablet 3.125 mg PO Q12H 04/20/24 05/21/24 lisinopril 5 mg tablet 5 mg PO DAILY 04/20/24 05/21/24 memantine 5 mg tablet 5 mg PO QAM 04/20/24 05/21/24 vibegron 75 mg tablet (Gemtesa) 75 mg PO DAILY 04/20/24 05/21/24 Allergies Allergy/AdvReac Type Severity Reaction Status Date / Time No Known Allergies Allergy Verified 05/21/24 10:06 [facility] Past Medical History Medical History Alcoholism Chronic a-fib COPD (chronic obstructive pulmonary disease) FHx: cancer of prostate radiation and surgery Hyperlipemia, fat-induced Hypertension Macular degeneration PARISA on CPAP Surgical History Surgical History H/O hernia repair H/O prostatectomy History of implantation of penile prosthesis Family History Family History Father Cancer Mother Hypertension Diabetes mellitus Cerebrovascular accident Sibling Myalgia sister Social History Social History Social History: The patient is and has 3 children who he adopted. The patient is retired from education and finances his daughter Floresita is a durable power civil rights attorney for healthcare. The daughter tells me that the patient was a heavy drinker and that he just went through detox at the [facility] please admitted there for his wounds. The patient is a former smoker. He does not use any marijuana or illicit drugs. Code status full code Smoking packs per day: 1 Smoking cigarettes per day: 20.0 Years smoked: 45 Smoking pack-years: 45.00 Smoking status: Former smoker Tobacco type: cigarettes Alcohol intake: former Substance use: never Substance use type: does not use Last use: 2 drinks alcohol per day, quit in july Spiritual care concerns: No Exam Narrative: APPEARANCE: No apparent distress. Head: atraumatic. EYES: EOMI, NOSE: Atraumatic NECK: Trachea midline RESPIRATORY: No increased rate of breathing CARDIOVASCULAR: RRR, ABDOMINAL: Non-distended MUSCULOSKELETAl: tenderness to palpation over the left paralumbar muscles, no midline tenderness, no bruising, masses or areas of fluctuance or ecchymosis. No skin changes. NEURO: Alert. Moving 4/4 extremities SKIN:: Warm, dry. Normal color PSYCHIATRIC: Normal affect Course Vital Signs Vital signs: Vital Signs Temperature 97.9 F 05/24/24 11:33 Pulse Rate 64 05/24/24 11:33 Respiratory Rat
== END 2024-05-24 16:16 | disposition home or self-care (01) ==
PROVIDERS: Emergency Provider Emergency Medicine; PCP Internal Medicine
DX: M54.50 Low back pain, unspecified (principal); M25.551 Pain in right hip; J44.9 Chronic obstructive pulmonary disease, unspecified; I48.91 Unspecified atrial fibrillation; I10 Essential (primary) hypertension; E78.5 Hyperlipidemia, unspecified; Z87.891 Personal history of nicotine dependence; Z79.01 Long term (current) use of anticoagulants; Z79.899 Other long term (current) drug therapy
CPT/HCPCS: 72131; 72170; 99284; A9270

== ENCOUNTER 2024-07-11 11:53 | Emergency (ER) | payer MEDICARE, SELFPAY ==
--- NOTE | ~2024-07-11 | XR_ITS ---
EXAMINATION: XR chest 2V DATE: 07/11/2024 13:38 INDICATION: Shortness of breath TECHNIQUE: frontal and lateral views of the chest were obtained. COMPARISON: Chest radiograph dated 11/22/2022 FINDINGS: The lungs remain clear with no focal airspace opacities, pulmonary edema, pleural effusion or pneumot horax. The cardiomediastinal silhouette is normal. 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 IMPRESSION: 1. No acute cardiopulmonary disease. Reviewed, dictated and finalized at location A.
[2024-07-11 12:00] VITALS: BP 137/72; PULSE 72; RESP 16; TEMP 36.7; O2SAT 100
[2024-07-11 12:11] VITALS: BP 134/74; BP 137/72; PULSE 72; RESP 16; TEMP 36.7; O2SAT 100
--- NOTE | 2024-07-11 13:19 | ECG_ITS ---
Test Date: 2024-07-11 13:48:49 Measurements Intervals [place] Rate: 71 P: 0 DE: 0 QRS: -51 QRSD: 101 T: 107 QT: 392 QTc: 428 Interpretive Statements ECTOPIC ATRIAL RHYTHM LEFT ANTERIOR FASCICULAR BLOCK. POOR R-WAVE PROGRESSION. LATERAL T-WAVE ABNORMALITY, CONSIDER ISCHEMIA. PREMATURE ATRIAL CONTRACTION ABNORMAL ECG No previous ECG available for comparison Electronically Signed On 07-12-2024 10:54:04 CDT by Jann Mccloud M.D.
--- NOTE | 2024-07-11 13:22 | ED.GENADULT ---
HPI - General Adult General Chief complaint: Unspecified Stated complaint: Blood Pressure Problem Source: patient Mode of arrival: ambulatory Limitations: no limitations History of Present Illness HPI narrative: Patient presents for evaluation of lightheadedness. He indicates he has had intermittent symptoms for the past few weeks. He cannot identify any aggravating or alleviating factors. Episodes of lightheadedness last several hours. He denies any chest pain or cough. He has some dyspnea on exertion. He has an underlying history of atrial fibrillation but denies any palpitations. He is anticoagulated with Eliquis. His daughter, present at the bedside, indicates that his symptoms started after he use some cannabis oil. She indicates symptoms he is a previous alcoholic but does not drink any longer. She states he has seen neurology and has dementia. He has an appointment with his primary care provider tomorrow for serum labs. Lives in independent living at [facility]. Related Data Home Medications Medication Instructions Recorded Confirmed amlodipine 5 mg tablet 5 mg PO BID 09/05/22 05/21/24 apixaban 5 mg tablet (Eliquis) 5 mg PO BID 09/05/22 05/21/24 atorvastatin 20 mg tablet 20 mg PO DAILY 09/05/22 05/21/24 multivit with minerals-iron 18 1 tablet PO DAILY 09/05/22 05/21/24 mg-folic ac 400 mcg-vit K 25 mcg tablet (Adults Multivitamin) folic acid 1 mg tablet 1 mg PO DAILY 04/06/23 05/21/24 methotrexate sodium 2.5 mg tablet 2.5 mg PO DAILY 04/06/23 05/21/24 omeprazole 20 mg capsule,delayed 20 mg PO DAILY 04/06/23 05/21/24 release carvedilol 3.125 mg tablet 3.125 mg PO Q12H 04/20/24 05/21/24 lisinopril 5 mg tablet 5 mg PO DAILY 04/20/24 05/21/24 memantine 5 mg tablet 5 mg PO QAM 04/20/24 05/21/24 vibegron 75 mg tablet (Gemtesa) 75 mg PO DAILY 04/20/24 05/21/24 ketoconazole 2 % topical cream applic topical 07/11/24 omeprazole 20 mg capsule,delayed mg 07/11/24 release triamcinolone acetonide 0.1 % topical 07/11/24 topical ointment Allergies Allergy/AdvReac Type Severity Reaction Status Date / Time No Known Allergies Allergy Verified 05/21/24 10:06 Review of Systems Review of Systems: CONSTITUTIONAL: Denies fever, chills, or sweats. EYES: Denies visual changes, redness, or discharge. ENT: Denies rhinorrhea, congestion, sore throat, or otalgia. CARDIOVASCULAR: Denies chest pain, palpitations, or edema. RESPIRATORY: Denies cough or dyspnea. GASTROINTESTINAL: Denies abdominal pain, nausea, vomiting, or diarrhea. GENITOURINARY: Reports 5 episodes per night nocturia(chronic) Denies dysuria or hematuria. SKIN: Denies rash or itching. MUSCULOSKELETAL: Denies back pain, joint pain, or myalgia. NEUROLOGIC: Reports episodes of lightheadedness. Denies headache, numbness, dizziness, or weakness. PSYCHIATRIC: Denies anxiety or depression. [facility] Past Medical History Medical History Alcoholism Chronic a-fib COPD (chronic obstructive pulmonary disease) FHx: cancer of prostate radiation and surgery Hyperlipemia, fat-induced Hypertension Macular degeneration PARISA on CPAP Surgical History Surgical History H/O hernia repair H/O prostatectomy History of implantation of penile prosthesis Family History Family History Father Cancer Mother Hypertension Diabetes mellitus Cerebrovascular accident Sibling Myalgia sister Social History Social History Social History: The patient is and has 3 children who he adopted. The patient is retired from education and finances his daughter Floresita is a durable power family law attorney for healthcare. The daughter tells me that the patient was a heavy drinker and that he just went through detox at the [facility]
--- NOTE | 2024-07-11 13:31 | PC.NURSE ---
in br to obtain ua at 1325, currently in xray
[2024-07-11 13:50] VITALS: BP 150/73; PULSE 65
[2024-07-11 13:55] VITALS: BP 131/69; PULSE 56
[2024-07-11 13:59] LABS: Glucose Point of Care 92 mg/dl (65-105)
[2024-07-11 14:00] VITALS: BP 143/90; PULSE 69
[2024-07-11 14:02] LABS: EDUAAPPEAR Clear; EDUABILI Negative; EDUABLOOD Trace; EDUACOLOR1 Yellow; EDUAGLUCOSE Negative; EDUAKETONE Trace; EDUALEUKO Negative; EDUANITRATE Negative; EDUAPH 5.5; EDUAPROTEIN 2+; EDUAUROBILI 0.2
== END 2024-07-11 14:28 | disposition home or self-care (01) ==
PROVIDERS: Emergency Provider Nurse Practitioner; PCP Internal Medicine
DX: R42 Dizziness and giddiness (principal); Z87.891 Personal history of nicotine dependence; I48.20 Chronic atrial fibrillation, unspecified; J44.9 Chronic obstructive pulmonary disease, unspecified; E78.5 Hyperlipidemia, unspecified; I10 Essential (primary) hypertension; H35.30 Unspecified macular degeneration; G47.33 Obstructive sleep apnea (adult) (pediatric); Z79.01 Long term (current) use of anticoagulants; F03.90 Unspecified dementia, unspecified severity, without behavioral disturbance, psychotic disturbance, mood disturbance, and anxiety
CPT/HCPCS: 71046; 81003; 82948; 93005; 99213; G0463